=== PATIENT | male | born 1970 ===

== ENCOUNTER 2017-08-02 07:05 | Day surgery (SDC) | payer OTHER ==
[2017-08-02] MEDS ORDERED: Lactated Ringer's 500 ML IV ONE (07:41)
[2017-08-02] MEDS ORDERED: Propofol 10 mg/ml Inj (20 ML) ONE (08:43)
[2017-08-02 09:18] VITALS: TEMP 97.5
[2017-08-02 09:30] VITALS: BP 141/90; PULSE 71; RESP 17; O2SAT 100
== END 2017-08-02 10:00 | disposition home or self-care (01) ==
LOC: H.ENDO 07:05
PROVIDERS: ATTEND Internal Medicine Gastroenterology
DX: Z86.010 Personal history of colon polyps (principal); I10 Essential (primary) hypertension; K64.8 Other hemorrhoids
CPT/HCPCS: 45378; J2001; J2704; J7120